=== PATIENT | male | born 1995 | race African-American/Black ===

== ENCOUNTER 2019-11-26 11:34 | Emergency (ER) | payer BC, SELFPAY ==
[~2019-11-26] VITALS: Ht 182.9 cm; Wt 117.8 kg
[2019-11-26 11:35] VITALS: BP 141/84
[2019-11-26] MEDS ORDERED: NORC1TAB7 PO (12:28)
--- NOTE | 2019-11-26 12:49 | REP ---
Clinical: Trauma. Technique: AP, lateral, bilateral oblique views of the right hand. Findings: There is a transverse fracture through the distal aspect of the fifth metacarpal bone with volar angulation (boxer's fracture) and overlying soft tissue swelling. Remainder examination appears normal. Impression: Boxer's fracture involving the distal aspect of the fifth metacarpal bone. Electronically Signed by Hernán Garces MD 11/26/2019 12:41 P
== END 2019-11-26 12:36 | disposition home or self-care (01) ==
LOC: M ED 11:34
DX: S62.326A Displaced fracture of shaft of fifth metacarpal bone, right hand, initial encounter for closed fracture (principal); F17.200 Nicotine dependence, unspecified, uncomplicated; W18.09XA Striking against other object with subsequent fall, initial encounter; Y93.02 Activity, running; Y99.8 Other external cause status; Z88.0 Allergy status to penicillin; Y92.009 Unspecified place in unspecified non-institutional (private) residence as the place of occurrence of the external cause